=== PATIENT | female | born 1940 | race Two or more races ===

== ENCOUNTER 2021-04-17 18:53 | Emergency (ER) | payer OTHER ==
[~2021-04-17] VITALS: Ht 152.4 cm; Wt 59.0 kg
[2021-04-17] MEDS ORDERED: FLAGYL500MG (19:31)
[2021-04-17] MEDS ORDERED: CIPRO500 MG (19:31)
[2021-04-17] MEDS ORDERED: METFORMIN (19:37)
[2021-04-18] MEDS ORDERED: INTEGRA PLUS C1 EACH PO (10:31)
== END 2021-04-18 10:43 | disposition home or self-care (01) ==
LOC: ER 18:53
DX: K57.31 Diverticulosis of large intestine without perforation or abscess with bleeding (principal); D62 Acute posthemorrhagic anemia; E86.0 Dehydration; K62.5 Hemorrhage of anus and rectum; E87.8 Other disorders of electrolyte and fluid balance, not elsewhere classified; K44.9 Diaphragmatic hernia without obstruction or gangrene; R10.32 Left lower quadrant pain; E11.22 Type 2 diabetes mellitus with diabetic chronic kidney disease; I12.9 Hypertensive chronic kidney disease with stage 1 through stage 4 chronic kidney disease, or unspecified chronic kidney disease; N18.30 Chronic kidney disease, stage 3 unspecified; E55.9 Vitamin D deficiency, unspecified; Z79.84 Long term (current) use of oral hypoglycemic drugs; Z87.891 Personal history of nicotine dependence